=== PATIENT | female | born 1980 | race Caucasian/White ===

== ENCOUNTER 2018-12-16 00:55 | Emergency (ER) | payer MEDICAID ==
[~2018-12-16] VITALS: Ht 165.1 cm; Wt 95.0 kg
[2018-12-16 02:53] LABS: CLARITY URINE CLOUDY (CLEAR); COLOR URINE YELLOW (YELLOW); KETONES URINE 3+ (NEGATIVE); LEUKOCYTE ESTERASE URINE TRACE (NEGATIVE); NITRITE URINE NEGATIVE (NEGATIVE); OCCULT BLOOD URINE NEGATIVE (NEGATIVE); PROTEIN URINE NEGATIVE (NEGATIVE); SPECIFIC GRAVITY URINE 1.028 (1.005-1.030); UROBILINOGEN URINE 0.2 E.U./dL (0.2-1.0)
[2018-12-16] MEDS ORDERED: MORPHINE SULFATE 4 MG/ML CPJ (NOT FOR IM USE) IV STA (04:43)
[2018-12-16] MEDS ORDERED: SODIUM CHLORIDE 0.9% 1,000 ML IV ONE (04:43)
[2018-12-16] MEDS ORDERED: ONDANSETRON HCL 4MG/2ML INJ IV STA (04:43)
[2018-12-16 05:41] LABS: BASOPHILS % 0.1 % (0.0-2.0); HEMATOCRIT. 40.6 % (36.0-48.0); HEMOGLOBIN. 13.5 g/dL (12.0-16.0); LYMPHOCYTES % 7.2 % (20.0-50.0); MEAN CORPUSCULAR HEMOGLOBIN 30.4 pg (28.0-32.0); MEAN CORPUSCULAR VOLUME 91.5 fL (81.0-99.0); MEAN PLATELET VOLUME 9.5 fl (7.4-10.4); MONOCYTES % 5.2 % (2.0-8.0); NEUTROPHILS % 87.5 % (40.0-76.0); PLATELET 255 x1000/uL (130-400); RED BLOOD CELL COUNT 4.44 mill/uL (4.2-5.4); RED CELL DISTRIBUTION WIDTH 13.8 % (11.6-14.6)
[2018-12-16 05:44] LABS: CHLORIDE 105 mEq/L (98-107); PROTHROMBIN TIME 10.5 sec (9.1-11.1)
[2018-12-16 06:55] VITALS: BP 123/83
== END 2018-12-16 07:35 | disposition home or self-care (01) ==
LOC: ER 00:55
DX: R10.33 Periumbilical pain (principal); N39.0 Urinary tract infection, site not specified; D72.829 Elevated white blood cell count, unspecified; R11.2 Nausea with vomiting, unspecified
CPT/HCPCS: 36415; 80053; 81003; 81025; 83690; 85025; 85610; 96361; 96374; 96375; 99283; J2270; J2405; J7030; Z7610

== ENCOUNTER 2025-03-29 11:06 | Emergency (ER) | payer MEDICAID ==
[~2025-03-29] VITALS: Ht 167.6 cm; Wt 92.9 kg
[2025-03-29 11:07] VITALS: TEMP 36.7; O2SAT 100
[2025-03-29] MEDS: ACETAMINOPHEN 325MG TABLET PO ONE (11:40)
[2025-03-29 12:04] LABS: BASOPHILS % 0.4 % (0.0-2.0); EOSINOPHILS % 1.8 % (0.0-5.0); HEMATOCRIT. 39.3 % (36.0-48.0); HEMOGLOBIN. 13.2 g/dL (12.0-16.0); LYMPHOCYTES % 35.7 % (20.0-50.0); MEAN CORPUSCULAR HEMOGLOBIN 30.4 pg (28.0-32.0); MEAN CORPUSCULAR HGB CONC 33.7 g/dL (31.0-37.0); MEAN CORPUSCULAR VOLUME 90.2 fL (81.0-99.0); MEAN PLATELET VOLUME 8.6 fl (7.4-10.4); MONOCYTES % 9.1 % (2.0-8.0); PLATELET 248 x1000/uL (130-400); RED BLOOD CELL COUNT 4.35 mill/uL (4.2-5.4); RED CELL DISTRIBUTION WIDTH 13.7 % (11.6-14.6); WHITE BLOOD COUNT 4.1 x1000/uL (4.5-11.0)
[2025-03-29 12:29] LABS: CHLORIDE 106 mEq/L (98-107); SODIUM 140 mEq/L (136-145)
[2025-03-29 12:30] LABS: CALCIUM 9.2 mg/dL (8.7-10.4); CARBON DIOXIDE 24 mEq/L (21-32)
[2025-03-29 12:35] LABS: CREATININE 0.8 mg/dL (0.6-1.0); GLUCOSE 93 mg/dL (70-105); UREA NITROGEN BLOOD 15 mg/dL (9-23)
[2025-03-29 12:37] LABS: ALANINE AMINOTRANSFERASE 44 IU/L (10-49); ALBUMIN 4.3 g/dL (3.2-4.8); ASPARTATE AMINOTRANSFERASE 39 IU/L (<34); BILIRUBIN TOTAL 0.4 mg/dL (0.1-1.0); PROTEIN TOTAL 7.2 g/dL (6.0-8.3)
[2025-03-29 13:08] LABS: HCG SCREEN NEGATIVE
[2025-03-29 13:17] VITALS: BP 151/93; PULSE 63; RESP 16; O2SAT 100
== END 2025-03-29 13:19 | disposition home or self-care (01) ==
LOC: ER 11:06
DX: M54.9 Dorsalgia, unspecified (principal); R10.84 Generalized abdominal pain; I10 Essential (primary) hypertension
CPT/HCPCS: 36415; 76700; 80053; 81025; 84703; 85025; 99284

== ENCOUNTER 2025-05-06 15:38 | Emergency (ER) | payer MEDICAID ==
[~2025-05-06] VITALS: Ht 167.6 cm; Wt 91.0 kg
[2025-05-06 15:45] VITALS: TEMP 36.9; O2SAT 99
[2025-05-06] MEDS: CYCLOBENZAPRINE 10MG TABLET PO ONE (17:16)
[2025-05-06] MEDS: LIDOCAINE 5% PATCH TOP SCH (17:17)
[2025-05-06] MEDS ORDERED: IBUP-2028 MT (19:15)
[2025-05-06] MEDS ORDERED: ACET-2708 MT (19:15)
[2025-05-06] MEDS ORDERED: LIDO-53 TP (19:16)
[2025-05-06] MEDS: ACETAMINOPHEN 500MG TABLET PO ONE (19:21)
[2025-05-06 19:30] VITALS: BP 126/104; PULSE 81; RESP 18; O2SAT 100
== END 2025-05-06 19:49 | disposition home or self-care (01) ==
LOC: ER 15:48
DX: S39.012A Strain of muscle, fascia and tendon of lower back, initial encounter (principal); I10 Essential (primary) hypertension; X58.XXXA Exposure to other specified factors, initial encounter; Y93.89 Activity, other specified; Y92.89 Other specified places as the place of occurrence of the external cause; Y99.8 Other external cause status
CPT/HCPCS: 81025; 99284